=== PATIENT | male | born 1990 | race African-American/Black ===

== ENCOUNTER 2018-10-24 11:14 | Emergency (ER) | payer MEDICAID ==
[~2018-10-24] VITALS: Ht 172.7 cm; Wt 77.3 kg
[2018-10-24] MEDS ORDERED: ALBU8HFA IH (11:28)
[2018-10-24] MEDS ORDERED: ALBUTEROL SULFATE 2.5 MG/0.5 ML NEB SOLUTION NEB ONE ×2 (14:15→15:15)
[2018-10-24] MEDS ORDERED: ALBUTEROL SULFATE HFA 90 MCG/PUFF 8 GM INHALER IH ONE (14:15)
[2018-10-24] MEDS ORDERED: IPRATROPIUM BROMIDE 0.5 MG/2.5 ML NEB SOLUTION NEB ONE ×2 (14:15→15:15)
[2018-10-24 15:38] VITALS: BP 110/66
== END 2018-10-24 15:44 | disposition home or self-care (01) ==
LOC: EMS 11:16
DX: J45.901 Unspecified asthma with (acute) exacerbation (principal); F17.210 Nicotine dependence, cigarettes, uncomplicated; F12.90 Cannabis use, unspecified, uncomplicated; Z88.8 Allergy status to other drugs, medicaments and biological substances
CPT/HCPCS: 93005; 94640; 99406; J3535